=== PATIENT | male | born 1930 | race Caucasian/White ===

== ENCOUNTER 2017-06-16 17:57 | Emergency (ER) | payer OTHER ==
[~2017-06-16] VITALS: Ht 188 cm; Wt 99.4 kg
[2017-06-16 18:00] VITALS: BP 116/72
== END 2017-06-16 19:07 | disposition left against medical advice (07) ==
LOC: EME 17:57
DX: K59.00 Constipation, unspecified (principal); Z53.21 Procedure and treatment not carried out due to patient leaving prior to being seen by health care provider